=== PATIENT | female | born 1980 | race Native Hawaiian/Other Pacific Islander ===

== ENCOUNTER → 2018-03-31 08:06 | Outpatient (CLI) | payer BC, SELFPAY ==
[2018-03-31 07:59] VITALS: BMI 27.3
--- NOTE | 2018-03-31 08:13 | RAD_ITS ---
STUDY: X-RAY - LUMBAR SPINE REASON FOR EXAM: Female, 38 years old. Fell, right-sided back pain, history of herniated disc L4-5. TECHNIQUE: 3 view(s) of the lumbar spine were obtained. COMPARISON: None FINDINGS: There is straightening of the normal lumbar lordosis. There is no substantial scoliosis. There is a normal alignment of the vertebrae. Mild endplate spurring L5-S1. Minimal facet arthropathy L4-5, 5 and S1. Normal disc space heights. Mild sclerosis of the sacroiliac joints. The soft tissue structures are unremarkable. RAD/Lumbar Spine 2 or 3 Views IMPRESSION: Minimal degenerative changes. There is straightening of the normal lordotic curve, a nonspecific finding, which may be due to positioning or which might be due to muscle spasm. Electronically Signed: Marita Molina MD at 7:28 EST , Service support ,
--- NOTE | 2018-03-31 08:13 | RAD_ITS ---
STUDY: X-RAY - THORACIC SPINE REASON FOR EXAM: Female, 38 years old. Fell right side back pain. TECHNIQUE: 2 view(s) of the thoracic spine were obtained. COMPARISON: None. FINDINGS: Normal kyphosis of the thoracic spine. There is minimal dextroscoliosis. Normal thoracic vertebrae and endplates. Normal disc space heights. The soft tissue structures are unremarkable. RAD/Thoracic Spine 3 Views IMPRESSION: Normal x-ray examination of the thoracic spine. Electronically Signed: Marita Molina MD at 7:27 EST , Service support ,
--- NOTE | 2018-03-31 08:13 | RAD_ITS ---
STUDY: X-RAY - CERVICAL SPINE REASON FOR EXAM: Female, 38 years old. Fell, right-sided neck pain, TECHNIQUE: 4 view(s) of the cervical spine were obtained. COMPARISON: None FINDINGS: Normal anterior atlantoaxial articulation. Normal odontoid process. There is straightening of the normal cervical lordosis. Normal vertebral bodies and endplates. Normal disc space heights. The soft tissue structures are unremarkable. RAD/Cerv Spine 2 or 3 Views IMPRESSION: There is straightening of the normal lordotic curve, a nonspecific finding, which may be due to positioning or which might be due to muscle spasm. Electronically Signed: Marita Molina MD at 7:29 EST , Service support ,
== END ==
PROVIDERS: Family Provider Family Medicine; PCP Family Medicine; Referring Provider Physician Assistant; Visit Provider Physician Assistant
DX: M54.2 Cervicalgia (principal); M54.5 Low back pain; M54.6 Pain in thoracic spine
CPT/HCPCS: 72040; 72072; 72100

== ENCOUNTER 2018-06-15 10:00 | Outpatient (RCR) | payer BC, SELFPAY ==
[2018-03-31 07:59] VITALS: BMI 27.3
--- NOTE | 2018-05-04 10:50 | HP.PTEVAL_ITS ---
Patient's Visit Information OSVALDO SHI is a 38 year old F referred to Physical Therapy by Yee Hines MD with a diagnosis of LBP. Date of Evaluation: 05/04/18 Physical Therapist: Joaquim Holland, JANELLET, OCS, CSCS - Visit Plan Frequency: 2-3x /Week Duration: 4-6 Weeks Plan: 2-3x/week for 4-6 weeks for: Nel based L/S ext and progression of forces/mobs. DLS/body mechanics. ES and MH if needed.(pt trying to get prgnant so keep communication lines open about this) - Subjective Findings: Have had back pain since 2009. [place]oved [place] year ago and has been pretty good. Fell in March walking dog and slipping on hill. Pain is in LB and some into R LE. Had pain in R shoulder making it difficult to dress also but that is better. Pain in LB and R Leg is worse int he morning and gloria d to bend in morning to put on pants. Better last couple of days. Standing talking this morning had sharp pain in LB. Comfortable at rest. Walking too long or sitting for too long will cause pain. Has to be conscious of similar activiites. Has to break home activities down into shorter segments due to pain. Spolits up house duties throughout the weeek. Sleep is OK, but hard time turning in bed and cannot sleep on right side. Not working currently, was in visual merchandising and very physical work. Hobbies include painting in sitting or standing position. - Pain R LB adn leg Pain Intensity (Out of 10): 0 Pain Intensity Range: 0, 8 - Objective LB AROM ext causes pressure in R LB adn mod limited, flexion is slow and painful centrally, L SB gives R sided pain, R SB is oK. Walks well and trasnfers normal today but slow. reflexes 2/3 patella and achilles. Sensation WNL to gross light touch in LE. Strength LE 4/5 without myotomal problems. - slump and SLR test. Repeated eis:B motion. no pain. - Goals Goal 1:: full L/S AROM without pain. Goal Time Frame: 4-6 Weeks Goal 2:: Patient feel 90% better with pain 1/10 at most and only in back. Goal Time Frame: 4-6 Weeks Goal 3:: Pt sleep without interruption Goal Time Frame: 4-6 Weeks Goal 4:: Housework without noticing increasing pain. Goal Time Frame: 4-6 Weeks - Rehabilitation Potential Physical Therapy Diagnosis: LBP likely discal Rehabilitation Potential: Fair - Anticipated Interventions Patient/Client Instruction: Educate patient on: Condition, Plan of Care For the Purpose of:: To decrease pain, To increase ROM, To increase tolerance to activity/condition/position, To improve ability of physical actions for home/community/work/leisure Therapeutic Exercise to Include: Strength training, Passive ROM, Active ROM, Dynamic Lumbar Stabilization, Nel Exercises For the Purpose of:: To decrease pain, To increase ROM, To increase tolerance to activity/condition/position, To improve ability of physical actions for home/community/work/leisure Manual Therapy Techniques to Include: Mobilization Comment: ext For the Purpose of:: To increase ROM TENS: Yes Thermo therapy (hot pack): Yes For the Purpose of:: To decrease pain, To increase tolerance to activity/condition/position, To improve ability of physical actions for home/community/work/leisure Thank you for the opportunity to evaluate your patient. For Medicare and Medicare HMO plans, please review the plan of care and approve it. It will need to be FAXED BACK to us at [phone] for Medicare purposes. For Medicare only, by signing this I certify the plan of care. Please let me know if there are questions or concerns regarding this plan of care. Physician Signature:__ Date:
--- NOTE | 2018-06-15 10:29 | HP.PTDCSUM_ITS ---
HP - PT D/C Summary It has been my pleasure to treat OSVALDO SHI under orders from Yee Hines MD, for the diagnosis of LBP for a total of 9 visit(s). Discharge Date: 06/15/18 Please see the following information for a summary of their discharge status. - Subjective Subjective: No back pain lately. Can't go crazy on a full day yet. Sleep is good. Activities are pretty normal. - Pain R LB adn leg Pain Intensity (Out of 10): 0 - Overall Improvement % Improvement: 90 - Objective Objective/Function: Full L/S AROM without pain, has some contralateral stretch ing with B SB. Walks well and painfree today. Overall doing well and will continue to work hard at home. - Goals Goal 1:: full L/S AROM without pain. Goal Progress: Goal Met Goal 2:: Patient feel 90% better with pain 1/10 at most and only in back. Goal Progress: Goal Met Goal 3:: Pt sleep without interruption Goal Progress: Goal Met Goal 4:: Housework without noticing increasing pain. Goal Progress: Progressing Goal 5:: I approp Home based core strength ex to maintain improvements. Goal Progress: Goal Met - Plan Plan: D/C - D/C Information Discharge Comments: Pt doing well adn will continue via HEP adn let doctor know if pain returns. If there are questions or concerns regarding this patient's physical therapy, please feel free to call me at [phone]. Thank you for the referral of this patient. Sincerely, Joaquim Holland, DPT, OCS, CSCS
--- OUTSIDE RECORDS SUMMARY | 2018-08-05 12:43 | XMS RPT_ITS ---
:1980 Author Organization OHIP Care Team Providers Name Role Phone Yee Hines Attending Unavailable Yee Hines Referring Unavailable Yee Hines Primary Care Unavailable Robb Jackson Attending Unavailable Robb Jackson Attending Unavailable Robb Jackson Referring Unavailable Yee Hines Primary Care Unavailable PROBLEMS PROBLEMS DATE TYPE CONDITION / CODE ATTENDING STATUS SOURCE 04/26/2018 Unknown M54.2 - Robb Jackson Active [facility] Cervicalgia / Community M54.2(ICD-10) Hospital Repository 03/31/2018 Unknown M54.9 - Robb Jackson Active [facility] Dorsalgia, Community unspecified / Hospital M54.9(ICD-10) Repository PROCEDURES PROCEDURES No Procedure Records FoundRESULTS RESULTS INITAL EVALUATION (1) Observed: 05/06/2018 Status: F Source: [place] - PT 6:45 AM [facility] REPOSITORY [facility] Physical [facility] [address] [place] [address] Fax REHABILITATION SERVICES INITIAL EVALUATION MR#: [id number] Acct: [id number] Name: OSVALDO SHI Rep #: [id number] : 1980 38 From: Joaquim Holland DPT, OCS, CSCS Referring DrAugust: Yee Hines MD Status: REG RCR Insurance: [employer] SELF PAY INSURANCE Patient's Visit Information OSVALDO SHI is a 38 year old F referred to Physical Therapy by Yee Hines MD with a diagnosis of LBP. Date of Evaluation: 05/04/18 Physical Therapist: Joaquim Holland, JANELLET, OCS, CSCS - Visit Plan Frequency: 2-3x /Week Duration: 4-6 Weeks Plan: 2-3x/week for 4-6 weeks for: Nel based L/S ext and progression of forces/mobs. DLS/body mechanics. ES and MH if needed.(pt trying to get prgnant so keep communication lines open about this) - Subjective Findings: Have had back pain since 2009. [place]oved [place] and has been pretty good. Fell in March walking dog and slipping on hill. Pain is in LB and some into R LE. Had pain in R shoulder making it difficult to dress also but that is better. Pain in LB and R Leg is worse int he morning and gloria d to bend in morning to put on pants. Better last couple of days. Standing talking this morning had sharp pain in LB. Comfortable at rest. Walking too long or sitting for too long will cause pain. Has to be conscious of similar activiites. Has to break home activities down into shorter segments due to pain. Spolits up house duties throughout the weeek. Sleep is OK, but hard time turning in bed and cannot sleep on right side. Not working currently, was in visual merchandising and very physical work. Hobbies include painting in sitting or standing position. - Pain R LB adn leg Pain Intensity (Out of 10): 0 Pain Intensity Range: 0, 8 - Objective LB AROM ext causes pressure in R LB adn mod limited, flexion is slow and painful centrally, L SB gives R sided pain, R SB is oK. Walks well and trasnfers normal today but slow. reflexes 2/3 patella and achilles. Sensation WNL to gross light touch in LE. Strength LE 4/5 without myotomal problems. - slump and SLR test. Repeated eis:B motion. no pain. - Goals Goal 1:: full L/S AROM without pain. Goal Time Frame: 4-6 Weeks Goal 2:: Patient feel 90% better with pain 1/10 at most and only in back. Goal Time Frame: 4-6 Weeks Goal 3:: Pt sleep without interruption Goal Time Frame: 4-6 Weeks Goal 4:: Housework without noticing increasing pain. Goal Time Frame: 4-6 Weeks - Rehabilitation Potential Physical Therapy Diagnosis: LBP likely discal Rehabilitation Potential: Fair - Anticipated Interventions Patient/Client Instruction: Educate patient on: Condition, Plan of Care For the Purpose of:: To decrease pain, To increase ROM, To increase tolerance to activity/condition/position, To improve ability of physical actions for home/community/work/leisure Therapeutic Exercise to Include: Strength training, Passive ROM, Active ROM, Dynamic Lumbar Stabilization, Nel Exercises For the Purpose of:: To decrease pain, To increase ROM, To increase tolerance to activity/condition/position, To improve ability of physical actions for home/community/work/leisure Manual Therapy Techniques to Include: Mobilization Comment: ext For the Purpose of:: To increase ROM TENS: Yes Thermo therapy (hot pack): Yes For the Purpose of:: To decrease pain, To increase tolerance to activity/condition/position, To improve ability of physical actions for home/community/work/leisure Thank you for the opportunity to evaluate your patient. For Medicare and Medicare HMO plans, please review the plan of care and approve it. It will need to be FAXED BACK to us at [phone] for Medicare purposes. For Medicare only, by signing this I certify the plan of care. Please let me know if there are questions or concerns regarding this plan of care. Physician Signature: Date: <Electronically signed by Joaquim Holland DPT, OCS, CSCS> 05/06/18 0645 CC: Yee Hines MD EBClaudia Signed URGENT CARE VISIT Observed: 03/31/2018 Status: F Source: [facility] REPORT 11:[address] [address] OFFICE VISIT Date of Service: 03/31/18 MR#: [id number] Acct: [id number] Name: OSVALDO SHI Rep #: [id number] : 1980 Provider: Robb OVIEDO Age/Sex: 38/F Location: [facility] Status: Signed Intake Vital Signs03/31/18 Height 5 ft 5 in 03/31/18 Weight: 164 lb 03/31/18 Body Mass Index (BMI) 27.3 03/31/18 Blood Pressure 116/78 Intake Visit Reasons: Back pain Chief Complaint: s/p fall Instrument Adjuster Required: No Accompanied by: other Is patient in pain?: Yes Allergies No Known Allergies Allergy (Unverified 03/31/18 07:59) Medications cyclobenzaprine 10 mg tablet 10 mg PO TID PRN #20 tab 03/31/18 [Rx Confirmed 03/31/18] prednisone 20 mg tablet 20 mg PO DAILY #18 tab 03/31/18 [Rx Confirmed 03/31/18] PFSH Medical History Gluten intolerance (Acute) history of herniated disk L4 L5 (Acute) Social History Smoking Status: Never smoker alcohol intake: never HPI HPI Chief Complaint: s/p fall Details: OSVALDO BETHEA, is a 38 F who presents to the office today for initial evaluation low back pain with right thigh paresthesias as well as right upper extremity paresthesias status post fall on 03/18/18. Patient states while at home tripping falling landing on her left side including left shoulder. Since the date of the injury she has noted progressively worsening 5/10 aching low back pain along with paresthesias to right lateral posterior thigh as well as generalized aching discomfort throughout right upper extremity. She notes no complaints of left shoulder discomfort. She notes her right upper extremity and right thigh symptoms are exacerbated with cervical and waist flexion, alleviated by essentially nothing. She notes no caudal complaints upon questioning. Past medical history is significant for history of L4-5 herniated disc patient so states. She notes no other associated symptoms and no other alleviating or aggravating factors. ROS Const Constitutional: No other (ROS negative x10 other than as noted above) Exam Const General: cooperative, healthy appearing, no acute distress, comfortable Nutritional Appearance: average body habitus Orientation: alert, awake, oriented x3 HENMT Head: atraumatic Neck Neck: normal visual inspection, full ROM, no lymphadenopathy, no meningeal signs, supple Neck mass: No Thyroid: thyroid normal Lymphatic: no lymphadenopathy noted Chest Chest palpation AND inspection: normal inspection of the chest Resp Effort AND Inspection: normal respiratory effort, able to speak in complete sentences, symmetric chest movement, no cough Cardio Rate: regular rate Pulses: radial pulses present GI Inspection: normal to inspection Musc Musculoskeletal: No joint tenderness (With unguarded full active range of motion left shoulder; 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), joint redness or joint warmth Cervical Spine: cervical ROM normal, loss of normal cervical lordosis, cervical spasm and cervical muscular tenderness (R>L); no cervical spinal tenderness Thoracic/Lumbar Spine: thoracic and lumbar spine normal to inspection, no thoracic spinal tenderness, no lumbar spinal tenderness, paraspinal tenderness on the right greater than left, straight leg raise negative bilaterally (Except positive braggart's RLE) Skin General: no rashes or lesions noted Neuro General: alert, awake, oriented x3, gait normal Cognition: normal cognition Speech: speech normal Gait: normal gait Motor: muscle tone normal throughout Sensory Exam: no sensory deficits noted (except R lat. thigh and generalized nonspecific RUE paresthesias to touch) Extrem General: normal to inspection Psych Appearance: grossly normal Mental Status: mental status grossly normal Mood: congruent mood Affect: normal affect Speech and Movement: speech and movement normal Attitude: cooperative Thought Process: normal Thought Content: normal Judgment: judgment good Assessment AND Plan 1. Back pain M54.9 Orders Orders: 2. Cervical strain S16.1XXA Plan Reviewed today's cervical, thoracic, and lumbar spine radiographs with patient and spouse in office today, revealing no acute pathology per my review, pending radiologist interpretation at the time of this dictation. Prednisone and Flexeril as prescribed today. Home range of motion exercises as instructed today. Follow-up with PCP in 5-7 days should symptoms not improve, sooner should symptoms worsen or any other concerns develop. Patient states acknowledging understanding all the above. This note was generated with [employer] dictation software. It may contain incorrect words, spelling, and punctuation that were not noted in checking the note before signing. 3. Cervical radiculopathy M54.12 4. Thoracic myofascial strain S29.019A 5. Lumbar strain S39.012A 6. Lumbar radiculopathy M54.16 Plan Detail Other Orders Orders: Other Medications New: prednisone 3 tablets daily for 3 days, then 2 tablets daily20 mg PO DAILY 18 tabs 0RF for 3 days, then 1 tablet daily for 3 days. Coding Level of Care Code Off vis,new,level 4 Diagnoses Back pain M54.9 Cervical strain S16.1XXA Cervical radiculopathy M54.12 Thoracic myofascial strain S29.019A Lumbar strain S39.012A Lumbar radiculopathy M54.16 Time Spent (min) 40 03/31/18 1121 <Electronically signed by Robb OVIEDO> Date Robb OVIEDO Cosigner Signature: Date (if applicable) CC: THORACIC SPINE 3 Observed: 03/31/2018 Status: F Source: [place] VIEWS 8:13 AM [facility] REPOSITORY [facility] Imaging Services [address] [place] [address] Thoracic Spine 3 Views MR#: [id number] Acct: [id number] Name: OSVALDO SHI Rep #: [id number] : 1980 F 38 From: Marita Molina MD PCP: Yee Hines MD Status: REG CLI Study: Thoracic Spine 3 Views Date of Exam: 03/31/18 Exam# [id number] Ordering Dr: Robb Jackson STUDY: X-RAY - THORACIC SPINE REASON FOR EXAM: Female, 38 years old. Fell right side back pain. TECHNIQUE: 2 view(s) of the thoracic spine were obtained. COMPARISON: None. FINDINGS: Normal kyphosis of the thoracic spine. There is minimal dextroscoliosis. Normal thoracic vertebrae and endplates. Normal disc space heights. The soft tissue structures are unremarkable. RAD/Thoracic Spine 3 Views IMPRESSION: Normal x-ray examination of the thoracic spine. Electronically Signed: Marita Molina MD at 7:27 EST , Service support , CC: Yee Hines MD; Robb OVIEDO Bench Examiner: Signed LUMBAR SPINE 2 OR 3 Observed: 03/31/2018 Status: F Source: [facility] VIEWS 8:13 AM [facility] REPOSITORY [facility] Imaging Services [address] [place] [address] Lumbar Spine 2 or 3 Views MR#: [id number] Acct: [id number] Name: OSVALDO SHI Rep #: [id number] : 1980 F 38 From: Marita Molina MD PCP: Yee Hines MD Status: REG CLI Study: Lumbar Spine 2 or 3 Views Date of Exam: 03/31/18 Exam# [id number] Ordering Dr: Robb Jackson STUDY: X-RAY - LUMBAR SPINE REASON FOR EXAM: Female, 38 years old. Fell, right-sided back pain, history of herniated disc L4-5. TECHNIQUE: 3 view(s) of the lumbar spine were obtained. COMPARISON: None FINDINGS: There is straightening of the normal lumbar lordosis. There is no substantial scoliosis. There is a normal alignment of the vertebrae. Mild endplate spurring L5-S1. Minimal facet arthropathy L4- 5, 5 and S1. Normal disc space heights. Mild sclerosis of the sacroiliac joints. The soft tissue structures are unremarkable. RAD/Lumbar Spine 2 or 3 Views IMPRESSION: Minimal degenerative changes. There is straightening of the normal lordotic curve, a nonspecific finding, which may be due to positioning or which might be due to muscle spasm. Electronically Signed: Marita Molina MD at 7:28 EST , Service support , CC: Yee Hines MD; Robb OVIEDO Bench Examiner: Signed CERV SPINE 2 OR 3 Observed: 03/31/2018 Status: F Source: [place] VIEWS 8:13 AM [facility] REPOSITORY [facility] Imaging Services [address] [place] [address] Cerv Spine 2 or 3 Views MR#: [id number] Acct: [id number] Name: OSVALDO SHI Rep #: [id number] : 1980 F 38 From: Marita Molina MD PCP: Yee Hines MD Status: REG CLI Study: Cerv Spine 2 or 3 Views Date of Exam: 03/31/18 Exam# [id number] Ordering Dr: Robb Jackson STUDY: X-RAY - CERVICAL SPINE REASON FOR EXAM: Female, 38 years old. Fell, right-sided neck pain, TECHNIQUE: 4 view(s) of the cervical spine were obtained. COMPARISON: None FINDINGS: Normal anterior atlantoaxial articulation. Normal odontoid process. There is straightening of the normal cervical lordosis. Normal vertebral bodies and endplates. Normal disc space heights. The soft tissue structures are unremarkable. RAD/Cerv Spine 2 or 3 Views IMPRESSION: There is straightening of the normal lordotic curve, a nonspecific finding, which may be due to positioning or which might be due to muscle spasm. Electronically Signed: Marita Molina MD at 7:29 EST , Service support , CC: Yee Hines MD; Robb OVIEDO Bench Examiner: Signed ALLERGIES ALLERGIES DATE TYPE / CODE NAME / CODE REACTION SEVERITY SOURCE 03/31/2018 Drug No Known Unknown [facility] Allergy/4160 Allergies/F00 Hospital [address]8467(SNOMED [id number](RXNOR Repository CT) M) ENCOUNTERS ENCOUNTERS ADMIT/DISCHARGE ACCOUNT ADMITTING ENCOUNTER LOCATION SOURCE NUMBER CLASS 06/02/2018 [id number] Ambulatory [place] [facility] 3 [facility] ing:PT Repository 03/31/2018 [id number] Ambulatory [facility] [facility] 1 [facility] ing:HPRAD Repository 03/31/2018/ [id number] Ambulatory BMSBuilding:B [place] [address] Repository PAYERS PAYERS ENCOUNTER GUARANTOR PAYER SUBSCRIBER SOURCE 06/02/2018 OSVALDODavid Jin [place] [address] Insurance:ANTHEMPolic EDWARDSDOB: [address] y Number: [id number] Hospital [address]Rpq: 419 [id number] Repository [phone] () Date:[id number] [address] [place] [address] 359[address]CX: 06/02/2018 Secondary NOT GIVENUNK [place] Insurance:SELF PAY [facility] Number: Effective Repository Date:2018-04-27 03/31/2018 [facility] LILLIAN Jin [place] [address] Insurance:ANTHEMPolic EDWARDSDOB: [address] y Number: [id number] Hospital [address]Itb: 419 [id number] Repository [phone] () Date:[id number] [place] [address]DX: 03/31/2018 Secondary NOT GIVENUNK [place] Insurance:SELF PAY [facility] Number: Effective Repository Date:2018-03-31 03/31/2018 [facility] LILLIAN Jin [place] [address] Insurance:ANTHEMPolic EDWARDSDOB: [address] y Number: [id number] Hospital [address]Nak: (216) [id number] Repository [phone] (HP) Date:9213-19-83[address], [place] [address]EH: 03/31/2018 Secondary NOT GIVENUNK [place] Insurance:SELF PAY [facility] Number: Effective Repository Date:2018-03-31
== END 2018-06-15 19:00 | disposition home or self-care (01) ==
LOC: PT 10:00
PROVIDERS: Family Provider Family Medicine; PCP Family Medicine; Referring Provider Family Medicine; Visit Provider Family Medicine
DX: M54.5 Low back pain (principal)
CPT/HCPCS: 97014; 97110; 97162; 97530; G0283

== ENCOUNTER → 2018-07-14 11:56 | Outpatient (CLI) | payer BC, SELFPAY ==
[2018-03-31 07:59] VITALS: BMI 27.3
[2018-07-14 12:29] LABS: Mucous, Urine 0 SEEN /hpf (<or=2+); Red Blood Cells-Urine 0 SEEN /hpf (0-5)
--- NOTE | 2018-07-14 13:13 | US_ITS ---
STUDY: ULTRASOUND OF THE FEMALE PELVIS - COMPLETE REASON FOR EXAM: Female, 38 years old. Right lower quadrant pain. LMP: July 04, 2018 TECHNIQUE: Transabdominal and Transvaginal TECHNICAL QUALITY: Adequate. COMPARISON: None. FINDINGS: The uterus is retroverted and is in a midline position. The uterus measures 8.7 cm x 5.1 cm x 4.2 cm. Normal uterine cervix. The endometrium measures 5.4 mm in thickness, and is hyperechoic. Within the endometrium, there is a 1.4 cm x 0.8 cm x 0.8 cm echogenic nodule. This may represent a polyp. Clinical correlation is recommended. There is no demonstrated endometrial mass. There is a 1.6 cm x 1.4 cm x 1.2 cm fibroid in the body of the uterus. The uterus is of heterogeneous echotexture. I.U.D. - The patient does not have an I.U.D. The right ovary is visualized. The right ovary measures 4.1 cm x 5.1 cm x 4.2 cm. Follicles are seen within the ovary. There is no visualized right adnexal mass or complex lesion. There is normal arterial and normal venous vascularity. The left ovary is visualized. The left ovary measures 3.4 cm x 2 cm x 2.3 cm. Follicles are seen within the ovary. There is no visualized left adnexal mass or complex lesion. There is normal arterial and normal venous vascularity. There is no fluid in the cul-de-sac. The pre void volume of the bladder was 389 ml. Polycystic ovary disease: No. US/Transvaginal Non- IMPRESSION: Heterogeneous echotexture of the uterus suggestive of fibroid change with focal fibroid as described. Findings suggestive a 1.4 cm x 0.8 cm x 0.8 cm uterine endometrial polyp. Electronically Signed: Stewart Tovar, at 12:27 EST , Service support ,
--- NOTE | 2018-07-14 13:13 | US_ITS ---
STUDY: ULTRASOUND OF THE FEMALE PELVIS - COMPLETE REASON FOR EXAM: Female, 38 years old. Right lower quadrant pain. LMP: July 04, 2018 TECHNIQUE: Transabdominal and Transvaginal TECHNICAL QUALITY: Adequate. COMPARISON: None. FINDINGS: The uterus is retroverted and is in a midline position. The uterus measures 8.7 cm x 5.1 cm x 4.2 cm. Normal uterine cervix. The endometrium measures 5.4 mm in thickness, and is hyperechoic. Within the endometrium, there is a 1.4 cm x 0.8 cm x 0.8 cm echogenic nodule. This may represent a polyp. Clinical correlation is recommended. There is no demonstrated endometrial mass. There is a 1.6 cm x 1.4 cm x 1.2 cm fibroid in the body of the uterus. The uterus is of heterogeneous echotexture. I.U.D. - The patient does not have an I.U.D. The right ovary is visualized. The right ovary measures 4.1 cm x 5.1 cm x 4.2 cm. Follicles are seen within the ovary. There is no visualized right adnexal mass or complex lesion. There is normal arterial and normal venous vascularity. The left ovary is visualized. The left ovary measures 3.4 cm x 2 cm x 2.3 cm. Follicles are seen within the ovary. There is no visualized left adnexal mass or complex lesion. There is normal arterial and normal venous vascularity. There is no fluid in the cul-de-sac. The pre void volume of the bladder was 389 ml. Polycystic ovary disease: No. US/Pelvic (Non ) IMPRESSION: Heterogeneous echotexture of the uterus suggestive of fibroid change with focal fibroid as described. Findings suggestive a 1.4 cm x 0.8 cm x 0.8 cm uterine endometrial polyp. Electronically Signed: Stewart Tovar, at 12:27 EST , Service support ,
[2018-07-14 15:51] LABS: Absolute Lymphocyte Count 2.66 X10^3/ul (0.83-4.51); Absolute Neutrophil Count 3.6 X10^3/uL (2.0-7.7); Basophil# 0.06 X10^3/uL; Basophil% 0.9 % (0-1); Eosinophil# 0.21 X10^3/uL; Hematocrit 42.8 % (37-47); Hemoglobin 13.7 g/dl (12.0-15.0); Lymphocyte # 2.66 X10^3/ul (4.0); Lymphocyte % 38.3 % (19-41); Mean Corpuscular Hgb 30.6 pg (27.0-32.0); Mean Corpuscular Volume 95.5 fL (81-99); Mean Platelet Vol. 11.6 fl (6.2-12.0); Monocyte# 0.41 X10^3/uL; Monocyte% 5.9 % (0-10); Neutrophil # 3.59 X10^3/uL (2.7-7.7); Neutrophil % 51.8 % (47-70); POSITIVE COUNT NO; POSITIVE DIFFERENTIAL NO; POSITIVE MORPHOLOGY NO; Platelet Count 271 K/mm3 (150-450); RBC Distribution Width CV 12.6 % (11.6-14.6); RBC Distribution Width SD 42.9 fl (35.1-43.9); Red Blood Count 4.48 M/mm3 (4.2-5.4); White Blood Count 6.9 K/mm3 (4.4-11.0)
[2018-07-14 15:58] LABS: Color, Urine Yellow (Yellow); Glucose, Dipstick Normal (Normal); Ketone-Dipstick Negative (Negative); Leukocyte Esterase-Dipstick 25 /ul (Negative); Nitrite-Dipstick Positive (Negative); Occult Blood-Urine 10 /ul (Negative); Protein-Dipstick 30 mg/dl (Negative); Urine Bilirubin Dipstick Negative (Negative); Urine Clarity Cloudy (Clear); Urine Urobilinogen Normal (Normal); Urine pH 6.5 (5.0 - 8.0)
[2018-07-14 16:16] LABS: Bacteria 4+ /hpf (None Seen); Squamous Epithelial Cells - UA 0-5 SEEN /hpf (5-10); White Blood Cells 0-5 SEEN /hpf (0-5)
== END ==
PROVIDERS: Family Provider Family Medicine; PCP Family Medicine; Referring Provider Family Medicine; Visit Provider Family Medicine
DX: R10.31 Right lower quadrant pain (principal)
CPT/HCPCS: 36415; 76830; 76856; 81001; 85025; 87077; 87086; 87088; 93976

== ENCOUNTER → 2018-07-22 13:14 | Outpatient (CLI) | payer BC, SELFPAY ==
[2018-03-31 07:59] VITALS: BMI 27.3
[2018-07-22 13:17] LABS: Bacteria 0 SEEN /hpf (None Seen); Mucous, Urine 0 SEEN /hpf (<or=2+); Red Blood Cells-Urine 0 SEEN /hpf (0-5); White Blood Cells 0 SEEN /hpf (0-5)
[2018-07-22 15:31] LABS: Color, Urine Yellow (Yellow); Glucose, Dipstick Normal (Normal); Ketone-Dipstick Negative (Negative); Leukocyte Esterase-Dipstick Negative /ul (Negative); Nitrite-Dipstick Negative (Negative); Occult Blood-Urine Negative /ul (Negative); Protein-Dipstick Negative (Negative); Specific Gravity, Urine 1.005 (1.002-1.030); Urine Bilirubin Dipstick Negative (Negative); Urine Clarity Clear (Clear); Urine Urobilinogen Normal (Normal)
[2018-07-22 15:38] LABS: Squamous Epithelial Cells - UA 0-5 SEEN /hpf (5-10)
== END ==
PROVIDERS: Family Provider Family Medicine; PCP Family Medicine; Visit Provider Family Medicine
DX: R10.31 Right lower quadrant pain (principal)
CPT/HCPCS: 81001; 87086

== ENCOUNTER → 2018-08-08 12:33 | Outpatient (CLI) | payer BC, SELFPAY ==
[2018-03-31 07:59] VITALS: BMI 27.3
--- NOTE | 2018-08-08 12:41 | CT_ITS ---
STUDY: CT ABDOMEN AND PELVIS WITHOUT CONTRAST REASON FOR EXAM: Female, 38 years old. Diffuse abdominal pain for months. RADIATION DOSAGE (If Supplied By Facility): CTDIvol = ( 9.50 ) mGy, DLP = ( 449.37 ) mGycm TECHNIQUE: Transaxial images were obtained from the dome of the diaphragm to the symphysis pubis without oral contrast, and without intravenous contrast. Sagittal and coronal images were reconstructed. Individualized dose optimization techniques were used for this CT. COMPARISON: Pelvic ultrasound, July 14, 2018. FINDINGS: The visualized lung bases are unremarkable. The visualized portions of the heart are within normal limits. Normal liver. Normal gallbladder and extrahepatic biliary system. Normal spleen. There is a vague 5 mm hypodensity in the neck of the pancreas, ( image 40, series 1002), which may represent a cyst or small mass. The pancreas is otherwise unremarkable. Normal bilateral adrenal glands. Normal right kidney. Normal left kidney. Normal visualized stomach. Normal small intestine. Large amount of feces throughout the colon without mass or obstruction. The appendix is visualized and appears normal. Normal abdominal aorta. Normal inferior vena cava. Normal retroperitoneum. The uterus is retroverted and prominent. It is heterogenous in density. There are follicles seen in both ovaries. There is no pelvic lymphadenopathy. No free air or free fluid is seen within the peritoneal cavity. Normal abdominal wall. There are diffuse degenerative changes of the visualized lumbar spine. CT/Abdomen/Pelvis without Cont IMPRESSION: 1. Prominent uterus. 2. Increased colonic feces suggesting constipation. 3. Hypodensity in the neck of the pancreas. Mass versus cyst.. MRI is offered. Electronically Signed: Victor Hugo Almanzar DO at 10:55 EDT Tel [phone], Service support ,
== END ==
PROVIDERS: Family Provider Family Medicine; PCP Family Medicine; Referring Provider Family Medicine; Visit Provider Family Medicine
DX: R10.31 Right lower quadrant pain (principal)
CPT/HCPCS: 74176

== ENCOUNTER → 2018-08-16 10:09 | Outpatient (CLI) | payer BC, SELFPAY ==
[2018-03-31 07:59] VITALS: BMI 27.3
--- NOTE | 2018-08-16 10:13 | MRI_ITS ---
STUDY: MRI ABDOMEN WITH AND WITHOUT CONTRAST REASON FOR EXAM: Female, 38 years old. Pancreatic cyst. Pain. TECHNIQUE: Standardized fat and water weighted pulse sequences were obtained in all 3 orthogonal planes post contrast administration. 15 IV Dotarem was administered for the contrast portion of the examination. COMPARISON: CT dated 08/08/2018. FINDINGS: The visualized lung bases are unremarkable. The visualized portions of the heart are within normal limits. Normal liver. Normal gallbladder and extrahepatic biliary system. Normal spleen. There is an 8 x 6 mm T2 hyperintense nonenhancing cystic lesion in the body of the pancreas which corresponds to the findings on the recent CT. 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 There are no additional pancreatic lesions. The pancreatic duct is normal in caliber. Normal bilateral adrenal glands. Normal right kidney. Normal left kidney. Normal visualized stomach. Normal small intestine. Normal colon. The appendix is visualized and appears normal. Normal abdominal aorta. Normal inferior vena cava. Normal retroperitoneum. Normal abdominal wall. Normal osseous structures. MRI/MRI Abd WITH and W/O Contrast IMPRESSION: 8 x 6 mm T2 hyperintense nonenhancing cystic lesion in the body of the pancreas which corresponds to the findings on the recent CT. 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 A follow-up pancreatic protocol MRI in 6-12 months is recommended. Electronically Signed: Robb Orourke, at 16:13 EDT Tel , Service support ,
== END ==
PROVIDERS: Family Provider Family Medicine; PCP Family Medicine; Referring Provider Family Medicine; Visit Provider Family Medicine
DX: R93.5 Abnormal findings on diagnostic imaging of other abdominal regions, including retroperitoneum (principal)
CPT/HCPCS: 74183; A9575

== ENCOUNTER → 2018-11-09 | Outpatient (CLI) | payer BC, SELFPAY ==
[2018-11-09 14:03] VITALS: BMI 27.3
[2018-11-23 13:48] LABS: HPV APTIMA, High Risk Negative (Negative)
== END | disposition home or self-care (01) ==
PROVIDERS: Family Provider Family Medicine; PCP Family Medicine; Referring Provider Obstetrics & Gynecology; Visit Provider Obstetrics & Gynecology
DX: Z12.4 Encounter for screening for malignant neoplasm of cervix (principal)
CPT/HCPCS: 87624; 88175; G0145

== ENCOUNTER → 2018-11-25 | Outpatient (CLI) | payer BC, SELFPAY ==
[2018-11-09 14:03] VITALS: BMI 27.3
[2018-11-25 11:43] LABS: Estradiol 42.5 pg/mL; Follicle Stimulating Hormone 6.8 mIU/mL; Thyroid Stim Hormone (TSH) 1.17 uIU/mL (0.358-3.74)
== END | disposition home or self-care (01) ==
LOC: PAVLAB 11:02
PROVIDERS: Family Provider Family Medicine; PCP Family Medicine; Referring Provider Obstetrics & Gynecology; Visit Provider Obstetrics & Gynecology
DX: N94.6 Dysmenorrhea, unspecified (principal); N97.9 Female infertility, unspecified
CPT/HCPCS: 36415; 82670; 83001; 84443

== ENCOUNTER → 2018-12-23 11:16 | Outpatient (CLI) | payer BC, SELFPAY ==
[2018-12-19 11:43] VITALS: BMI 27.3
[2018-12-23 12:30] LABS: hCG Titer Quant., Serum 1469 mIU/mL (1-3)
== END ==
PROVIDERS: Family Provider Family Medicine; PCP Family Medicine; Referring Provider Obstetrics & Gynecology; Visit Provider Obstetrics & Gynecology
DX: N97.9 Female infertility, unspecified (principal)
CPT/HCPCS: 36415; 84702

== ENCOUNTER → 2018-12-25 06:38 | Outpatient (CLI) | payer BC, SELFPAY ==
[2018-12-19 11:43] VITALS: BMI 27.3
[2018-12-25 08:49] LABS: hCG Titer Quant., Serum 3175 mIU/mL (1-3)
== END ==
PROVIDERS: Family Provider Family Medicine; PCP Family Medicine; Visit Provider Obstetrics & Gynecology
DX: N97.9 Female infertility, unspecified (principal)
CPT/HCPCS: 36415; 84702

== ENCOUNTER → 2019-01-20 07:52 | Outpatient (CLI) | payer BC, SELFPAY ==
[2018-11-09 14:03] VITALS: BMI 27.3
[2018-12-19 11:43] VITALS: BMI 27.3
== END ==
PROVIDERS: Family Provider Family Medicine; PCP Family Medicine; Referring Provider Obstetrics & Gynecology; Visit Provider Obstetrics & Gynecology
DX: Z01.818 Encounter for other preprocedural examination (principal)

== ENCOUNTER → 2019-01-24 | Outpatient (CLI) | payer BC, SELFPAY ==
[2019-01-24 12:45] VITALS: BMI 27.3
[2019-01-24 18:49] LABS: Chlamydia Trachomatis by PCR Negative (Negative); Neisserai gonorrhoeae by PCR Negative (Negative); Probe Check PASS; Sample Adequacy Control PASS; Specimen Processing Control PASS
== END | disposition home or self-care (01) ==
LOC: LABSPEC 16:43
PROVIDERS: Family Provider Family Medicine; PCP Family Medicine; Referring Provider Obstetrics & Gynecology; Visit Provider Obstetrics & Gynecology
DX: O09.90 Supervision of high risk pregnancy, unspecified, unspecified trimester (principal); Z3A.00 Weeks of gestation of pregnancy not specified
CPT/HCPCS: 87086; 87088; 87491; 87591

== ENCOUNTER → 2019-02-02 | Outpatient (CLI) | payer BC, SELFPAY ==
[2019-01-24 12:45] VITALS: BMI 27.3
[2019-02-02 17:10] LABS: Absolute Lymphocyte Count 2.32 X10^3/uL (0.83-4.51); Absolute Neutrophil Count 6.8 X10^3/uL (2.0-7.7); Basophil# 0.03 X10^3/uL; Basophil% 0.3 % (0-1); Eosinophil# 0.15 X10^3/uL; Eosinophils% 1.5 % (0-5); Hematocrit 37.7 % (37-47); Hemoglobin 12.9 g/dL (12.0-15.0); Lymphocyte # 2.32 X10^3/ul (4.0); Lymphocyte % 22.9 % (19-41); Mean Corp Hgb Conc 34.2 g/dL (32-36); Mean Corpuscular Hgb 31.4 pg (27.0-32.0); Mean Corpuscular Volume 91.7 fL (81-99); Mean Platelet Vol. 11.4 fl (6.2-12.0); Monocyte# 0.79 X10^3/uL; Monocyte% 7.8 % (0-10); NRBC Flagged by Analyzer 0 % (0-5); Neutrophil # 6.81 X10^3/uL (2.7-7.7); Neutrophil % 67.1 % (47-70); Platelet Count 232 K/mm3 (150-450); RBC Distribution Width SD 43.8 fl (35.1-43.9); Red Blood Count 4.11 M/mm3 (4.2-5.4); White Blood Count 10.1 K/mm3 (4.4-11.0)
[2019-02-02 18:30] LABS: HIV - WCH Non-Reactive (Nonreactive); Rubella IgG > 500.0 IU/mL
[2019-02-03 02:39] LABS: Rapid Plasmin Reagin (RPR) NONREACTIVE (NONREACTIVE)
== END | disposition home or self-care (01) ==
PROVIDERS: Obstetrics & Gynecology; Family Provider Family Medicine; PCP Family Medicine; Referring Provider Nurse Practitioner Women's Health; Visit Provider Nurse Practitioner Women's Health
DX: O09.511 Supervision of elderly primigravida, first trimester (principal); Z3A.00 Weeks of gestation of pregnancy not specified
CPT/HCPCS: 36415; 85025; 86592; 86703; 86762; 86850; 86900; 86901

== ENCOUNTER → 2019-03-22 | Outpatient (CLI) | payer BC, SELFPAY ==
[2019-03-22 08:36] VITALS: BMI 29.2
== END | disposition home or self-care (01) ==
PROVIDERS: Family Provider Family Medicine; PCP Family Medicine; Referring Provider Obstetrics & Gynecology; Visit Provider Obstetrics & Gynecology
DX: Z36.9 Encounter for antenatal screening, unspecified (principal)
CPT/HCPCS: 36415

== ENCOUNTER → 2019-06-08 10:21 | Outpatient (CLI) | payer BC, SELFPAY ==
[2019-06-08 10:00] VITALS: BMI 29.2
[2019-06-08 11:23] LABS: Absolute Lymphocyte Count 1.42 X10^3/uL (0.83-4.51); Absolute Neutrophil Count 5.5 X10^3/uL (2.0-7.7); Basophil# 0.02 X10^3/uL; Basophil% 0.3 % (0-1); Eosinophils% 1.3 % (0-5); Hematocrit 33.6 % (37-47); Lymphocyte # 1.42 X10^3/ul (4.0); Lymphocyte % 18.5 % (19-41); Mean Corp Hgb Conc 32.7 g/dL (32-36); Mean Corpuscular Hgb 30.4 pg (27.0-32.0); Mean Corpuscular Volume 92.8 fL (81-99); Mean Platelet Vol. 11.8 fl (6.2-12.0); Monocyte# 0.62 X10^3/uL; Monocyte% 8.1 % (0-10); NRBC Flagged by Analyzer 0 % (0-5); Neutrophil # 5.48 X10^3/uL (2.7-7.7); Neutrophil % 71.1 % (47-70); Platelet Count 176 K/mm3 (150-450); RBC Distribution Width CV 12.5 % (11.6-14.6); RBC Distribution Width SD 42.9 fl (35.1-43.9); Red Blood Count 3.62 M/mm3 (4.2-5.4); White Blood Count 7.7 K/mm3 (4.4-11.0)
[2019-06-08 12:05] LABS: Glucose Challenge Gest 1H 50g 140 mg/dL (70-140)
[2019-06-08 12:30] LABS: Hepatitis B Surface Antigen Non-Reactive (Nonreactive)
== END ==
PROVIDERS: Nurse Practitioner Women's Health; PCP Family Medicine; Referring Provider Obstetrics & Gynecology; Visit Provider Obstetrics & Gynecology
DX: O09.90 Supervision of high risk pregnancy, unspecified, unspecified trimester (principal); Z3A.00 Weeks of gestation of pregnancy not specified
CPT/HCPCS: 36415; 82950; 85025; 87340

== ENCOUNTER → 2019-06-14 09:36 | Outpatient (CLI) | payer BC, SELFPAY ==
[2019-06-08 10:00] VITALS: BMI 29.2
[2019-06-14 10:46] LABS: Glucose GTT-Gestation. Fasting 86 mg/dL (<105)
[2019-06-14 11:32] LABS: Glucose GTT-Gestational 1 Hr 128 mg/dL (<190)
[2019-06-14 12:36] LABS: Glucose GTT-Gestational 2 Hr 137 mg/dL (<165)
[2019-06-14 14:46] LABS: Glucose GTT-Gestational 3 Hr 67 L (<145)
== END ==
PROVIDERS: PCP Family Medicine; Referring Provider Obstetrics & Gynecology; Visit Provider Obstetrics & Gynecology
DX: O99.810 Abnormal glucose complicating pregnancy (principal); Z3A.00 Weeks of gestation of pregnancy not specified
CPT/HCPCS: 36415; 82951; 82952

== ENCOUNTER → 2019-08-03 | Outpatient (CLI) | payer BC, SELFPAY ==
[2019-08-03 09:01] VITALS: BMI 29.2
== END | disposition home or self-care (01) ==
LOC: LABSPEC 15:52
PROVIDERS: PCP Family Medicine; Referring Provider Nurse Practitioner Women's Health; Visit Provider Nurse Practitioner Women's Health
DX: Z34.93 Encounter for supervision of normal pregnancy, unspecified, third trimester (principal); Z3A.36 36 weeks gestation of pregnancy
CPT/HCPCS: 87081

== ENCOUNTER → 2019-08-11 | Outpatient (CLI) | payer BC, SELFPAY ==
[2019-08-11 08:48] VITALS: BMI 29.2
[2019-08-11 10:01] LABS: Protein, Urine (Random) 65.1 mg/dL (<11.9); Protein:Creat Ratio 440 mg/g CRE (0-200)
== END | disposition home or self-care (01) ==
LOC: LABSPEC 09:39
PROVIDERS: PCP Family Medicine; Visit Provider Obstetrics & Gynecology
DX: O12.10 Gestational proteinuria, unspecified trimester (principal); Z3A.00 Weeks of gestation of pregnancy not specified
CPT/HCPCS: 82570; 84156

== ENCOUNTER → 2019-08-16 | Outpatient (CLI) | payer BC, SELFPAY ==
[2019-08-11 08:48] VITALS: BMI 29.2
--- NOTE | 2019-08-16 07:42 | US_ITS ---
STUDY: SECOND AND THIRD TRIMESTER OBSTETRICAL ULTRASOUND REASON FOR EXAM: Female, 39 years old proteinuria LMP: November 23, 2018. TECHNIQUE: Transabdominal TECHNICAL QUALITY: Adequate. PRIOR ULTRASOUND: None. FINDINGS: There is a single intrauterine fetus. The fetus is in a cephalic presentation. There is demonstrated cardiac activity with a heart rate of 143 bpm. There is a normal amniotic fluid volume. The largest amniotic fluid pocket measures 3.0 cm. The amniotic fluid index (DAT) is 6.8 cm. The placenta is fundal in location. There are Grade 2 placental changes. The cervix was not measured due to the head positioning. The adnexal regions are not visualized. BIOMETRY: BPD: 9.7 cm: 39 weeks, 4 days HC: 35.4 cm: 41 weeks, 2 days AC: 35.1 cm: 38 weeks, 6 days FL: 7.5 cm: 38 weeks, 1 days CI: 81% FL/BPD: 77% FL/HC: FL/AC: 21% HC/AC: 1.01 age by current US: 39 weeks, 3 days. RUPA by current US: August 20, 2019. Estimated weight: 3709 grams, +/- 549 grams, 84 %. Age by LMP: 38 weeks, 0 days. RUPA by LMP: August 30, 2019. US/OB Limited With Biometrics IMPRESSION: Single live intrauterine gestation with a mean gestational age of 39 weeks and 3 days. Electronically Signed: Stewart Tovar, at 9:35 EDT , Service support ,
== END | disposition home or self-care (01) ==
LOC: OPUS 07:42
PROVIDERS: PCP Family Medicine; Referring Provider Obstetrics & Gynecology; Visit Provider Obstetrics & Gynecology
DX: O12.10 Gestational proteinuria, unspecified trimester (principal); Z3A.00 Weeks of gestation of pregnancy not specified
CPT/HCPCS: 76816

== ENCOUNTER 2019-08-23 18:41 | Inpatient (IN) | payer BC, SELFPAY ==
[2019-08-11 08:48] VITALS: BMI 29.2
[2019-08-18 09:36] VITALS: BMI 29.2
[2019-08-23 19:26] VITALS: BP 134/76; PULSE 90
[2019-08-23 19:27] VITALS: BMI 30.6
[2019-08-23 19:28] VITALS: PULSE 96; TEMP 37.7; O2SAT 99
[2019-08-23 20:11] LABS: Absolute Lymphocyte Count 1.84 X10^3/uL (0.83-4.51); Absolute Neutrophil Count 4.6 X10^3/uL (2.0-7.7); Basophil# 0.02 X10^3/uL; Basophil% 0.3 % (0-1); Eosinophil# 0.03 X10^3/uL; Eosinophils% 0.4 % (0-5); Hematocrit 36.4 % (37-47); Hemoglobin 11.7 g/dL (12.0-15.0); Lymphocyte # 1.84 X10^3/ul (4.0); Mean Corp Hgb Conc 32.1 g/dL (32-36); Mean Corpuscular Hgb 28.8 pg (27.0-32.0); Mean Corpuscular Volume 89.7 fL (81-99); Mean Platelet Vol. 12.6 fl (6.2-12.0); Monocyte# 0.56 X10^3/uL; Monocyte% 7.9 % (0-10); NRBC Flagged by Analyzer 0 % (0-5); Platelet Count 188 K/mm3 (150-450); RBC Distribution Width CV 13.9 % (11.6-14.6); RBC Distribution Width SD 45.3 fl (35.1-43.9); Red Blood Count 4.06 M/mm3 (4.2-5.4); White Blood Count 7.1 K/mm3 (4.4-11.0)
[2019-08-23] MEDS: miSOPROStol 25 MCG TABLET VAGINAL (20:14)
[2019-08-23 22:10] VITALS: BP 119/90; PULSE 74; TEMP 37
[2019-08-23 22:11] VITALS: PULSE 76; O2SAT 99
[2019-08-24] VITALS (54 sets, daily range): BP systolic 92–155; BP diastolic 50–85; PULSE 62–102; RESP 18; TEMP 36.6–37.9; O2SAT 93–100
[2019-08-24] MEDS: 0.9% Normal Saline Single 100 ML IV.SOLN. IY (00:17)
--- NOTE | 2019-08-24 00:23 | HP.PCM_ITS ---
- Problem List (1) AMA (advanced maternal age) primigravida 35+ Status: Acute Qualifiers: Comment: genetic counseling provided and low risk NIPT, 36 week growth us. (2) Abnormal glucose affecting Status: Acute Comment: 3 hr. gtt normal (3) Influenza vaccine administered Status: Acute Comment: vaccine given on 02/23/19 (4) Status: Acute Qualifiers: Comment: discussed carrier and NTD, genetic low risk, AFP negative, anatomy normal (5) Proteinuria affecting Status: Acute Comment: weekly nst, BP cuff testing BID, growth scan ordered. (6) Supervision of high risk , antepartum Status: Acute Comment: PRR RUPA 08/30/19 girl Stefanie Spouse Dick (7) Uterine fibroid during , antepartum Status: Acute Comment: growth scans after 32 weeks- 08/02 Normal growth, 08/15 - borderline jaden History and Physical Date of Admission: 08/24/19 Intake Vital Signs 08/18/19 BMI 29.2 08/18/19 Height 5 ft 6 in 08/18/19 Weight: 191 lb 08/18/19 BMI 30.8 08/18/19 BP 130/60 H Intake Visit Reasons: 38NST/OB weeks Charge Histotechnologist Required: No Is patient in pain?: No Allergies gluten Allergy (Verified 08/18/19 09:36) Other Medications vitamin#30 30 mg iron-10 mg iron-folic acid 1 mg-omg3 capsule cap PO cap 02/23/19 [History Confirmed 08/18/19] blood pressure test kit-wrist See Rx Instructions .ROUTE .MEDSUPPLY #1 ea 08/11/19 [Rx Confirmed 08/18/19] Last Menstral Period: 11/23/18 Zika: Zika virus screening: Negative : No PFSH PFSH Medical History Gluten intolerance (Acute) history of herniated disk L4 L5 (Acute) Family History Grandmother Diabetes Grandfather Diabetes Unknown Lung disease Social History (Updated 08/18/19 @ 11:[address] Salome Gordon MD) household members: spouse current occupational status: employed, unemployed history of recent travel: No sexually active: Yes Smoking Status: Never smoker alcohol intake: never substance use type: does not use caffeine: Yes what type of physical activity do you participate in: walking seatbelt use: always do you feel safe at home: Yes additional social history: Miguel- works at [employer] Patient is unemployed, moved to the from the [facility] Pregancy History 1 Elective abortions Hx Para Spontaneous abortions Hx # Term Pregnancies Ectopic pregnancies Hx # Pregnancies Multiple births # of living children HPI 38NST/OB weeks: Details: OSVALDO SHI is a 39 year old at 39 weeks who presents for induction of labor secondary to advanced maternal age. OB Visit RUPA Calculator Estimated Delivery Date Method Current WG Current Estimate 08/30/19 LMP (Certain) 38w 2d Expected Delivery Route/Plan Labor Preferences- labor support person: Mango pain management options preferred: minimal interventnion to start, open to epidural cut cord/dad catch: yes : yes PP control planned: discussed possible routes of delivery and associated risks: [] special requests: [] Specific Issue/Plans flu vaccine: given tdap vaccine: given rhogam: na LARC form signed: yes movement and labor precautions reviewed. Problem list reviewed and updated with the most current plan of care details and appropriate orders placed. Relevant counseling for the gestational age provided. Continue routine care and follow up unless otherwise noted in visit notes/problem list details Initial Weight: 171 lb Date EGA Weight BP Urine Prot Glucose FHR FuHt Pres Dilation Effaced St Visit Note 02/23/19 13w 1d 176 lb (+5 lb) 122/70 Negative Negative 140 no vb cramping 03/22/19 17w 0d 181 lb 4 oz (+10 lb 4 oz) 124/62 Negative Negative 145 afp today no vb crmaping 04/20/19 21w 1d 179 lb 6 oz (+8 lb 6 oz) 106/67 Trace Negative 152 Some FM. No Vb. LOF. 05/18/19 25w 1d 183 lb 6 oz (+12 lb 6 oz) 120/76 Negative Negative 155 25 Good Fm. No Vb, LOF. Episode of dizziness yesterday. Relieved with rest. Enc to increase fluids, slow to stand etc. 06/08/19 28w 1d 185 lb 6 oz (+14 lb 6 oz) 120/70 Negative Negative 141 28 MH-good FM. NO VB, LOF. 28 wk labs, hep B, tdap. MFM growth US ordered 32 wk 06/23/19 30w 2d 190 lb (+19 lb) 110/64 Negative Negative 135 30 SM- no vb lof good fm no regular ctx 07/06/19 32w 1d 185 lb (+14 lb) 120/78 Negative Negative 131 32 MH-Good FM, no VB, LOF. Will have growth MFM US today. 07/21/19 34w 2d 190 lb 6 oz (+19 lb 6 oz) 115/74 Negative Negative 140 34 Cephalic SM- no vb lof good fm no regular ct 08/03/19 36w 1d 188 lb (+17 lb) 132/80 Negative Negative 139 36 Cephalic 0 -4 MH-No Vb, LOF. Good Fm. Growth US to day. GBS done 08/11/19 37w 2d 189 lb (+18 lb) 112/74 1+ Negative 135 37 Cephalic 0 SM- no vb lof fm no regular ctx 08/18/19 38w 2d 191 lb (+20 lb) 130/60 Negative Negative 130 38 Cephalic 0 SM-m no vb lof good fm no regular ctx Notes Visit Date: 08/18/19 ??No visit notes to display Visit Date: 08/11/19 ??No visit notes to display Visit Date: 08/03/19 ??No visit notes to display Visit Date: 07/21/19 ??No visit notes to display Visit Date: 07/06/19 ??No visit notes to display Visit Date: 06/23/19 ??No visit notes to display Visit Date: 06/08/19 ??No visit notes to display Visit Date: 05/18/19 ??No visit notes to display Visit Date: 04/20/19 ??Some FM. No Vb. LOF. ??JEWEL Pringle on 04/20/19 Visit Date: 03/22/19 ??afp today no vb crmaping ??Salome Gordon MD on 03/22/19 Visit Date: 02/23/19 ??no vb cramping ??Salome Gordon MD on 02/23/19 [facility] First Trimester First Trimester: Desire for , Alcohol, Tobacco Cessation, Illicit/Recreational Drug/Substance Use, Intimate Partner Violence, Barriers to care, Unstable Housing, Communication Barriers, Environmental/Work Hazards, Anticipated Course of Care, Toxoplasmosis Precations, Use of Any medications, Sexual activity, Exercise, Dental Care, Sauna/Hot tub use, Seat Belt use, Childbirth classes/Hospital facilities, , Travel, Indications for US and Screening for Aneuploidy Second Trimester Second Trimester: Signs and Symptoms of Labor, Selecting a care provider, Reproductive Life Planning, Care Planning, Depression/Anxiety and Intimate Partner Violence; discussed Tobacco Cessation Third Trimester Third Trimester: Pain Management Plans, Labor support person(s), Immediate Larc, Movement Monitoring and Feeding Yes ; discussed Trial of Labor after Counseling or discussed Circumcision preference Diagnostics Diagnostics Diagnostics Gest Glucose Tolerance MG/DL 06/14/19 Glucose 1 Hr 50 gm 140 mg/dL (70-140) 06/08/19 Hgb 11.0 g/dL (12.0-15.0) L 06/08/19 Hct 33.6 % (37-47) L 06/08/19 Details: HIV: Urine Culture: Sequential Screen: NIPT Screen: ROS Const Reports system reviewed and no additional complaints, except as docu Card Reports system reviewed and no additional complaints, except as docu Resp Reports system reviewed and no additional complaints, except as docu GI Reports system reviewed and no additional complaints, except as docu, Reports nausea Reports system reviewed and no additional complaints, except as docu Musc Reports system reviewed and no additional complaints, except as docu Exam Const General: cooperative, healthy appearing, comfortable, anxious HENMT Head: normal to inspection Nose: external nose normal Face and sinus: normal facial exam Neck Neck: normal visual inspection, full ROM, no lymphadenopathy Thyroid: thyroid normal Chest Chest palpation & inspection: normal inspection of the chest Resp Effort & Inspection: normal respiratory effort GI Inspection: normal to inspection Palpation: soft, other (gravid uterus) Other: infant vertex and appropriate size for gestational age Other: Cervical Exam: Extrem General: pedal edema Results POC Urinalysis 2 Dip (Clinic) Office Urine Glucose Negative Last Edit by Cherri Eduardo on 08/18/19 09:38 Office Urine Protein Negative Last Edit by Cherri Eduardo on 08/18/19 09:38 Assessment & Plan Problems 1. Proteinuria affecting O12.10 2. Abnormal glucose affecting O99.810 3. Influenza vaccine administered Z23 4. Uterine fibroid during , antepartum O34.10; D25.9 5. Supervision of high risk , antepartum O09.90 6. Primigravida of advanced maternal age in first trimester O09.511 7. 38 weeks gestation of Z3A.38 Patient presents IOL, plan management for , pitocin/AROM when able. Begin with Cytotec and Bateman bulb.. Pain management: [plans epidural]. GBS [negative]. Management of any complications: Advanced maternal age and fibroids I have reviewed the [facility] and made any clinically relevant updates. Orders Orders: POC Urinalysis 2 Dip (Clinic) Today D25.9, O09.90, O12.10, O34.10 OB NST Today D25.9, O09.90, O12.10, O34.10 Coding Level of Care Code OB Routine Diagnoses Proteinuria affecting O12.10 Abnormal glucose affecting O99.810 Influenza vaccine administered Z23 Uterine fibroid during , antepartum O34.10; D25.9 Supervision of high risk , antepartum O09.90 Primigravida of advanced maternal age in first trimester O09.511 ??Trimester: first trimester 38 weeks gestation of Z3A.38 ??Weeks of gestation: 38 weeks
[2019-08-24] MEDS: 0.9% Saline Lock 10 ML Syringe IV ×2 (00:29→00:36)
[2019-08-24] MEDS: Ondansetron 4 MG/2 ML Vial IV (00:30)
[2019-08-24] MEDS: fentaNYL 100 MCG/2 ML Ampul IV (00:34)
[2019-08-24] MEDS: Lactated Ringers 1,000 ML 50 ML IV (00:42)
[2019-08-24] MEDS: Oxytocin 30 units/NS 500 ml 30 UNITS/500 ML IV.SOLN IV (01:40)
[2019-08-24] MEDS: Lactated Ringers 500 ML 999 ML IV ×2 (04:31→06:08)
[2019-08-24] MEDS: fentaNYL-bupivacaine (epidural) 100 ML BAG EPIDURAL ×2 (05:54→10:08)
[2019-08-24] MEDS: Lactated Ringers 1,000 ML 200 ML IV (09:25)
[2019-08-24] MEDS: Oxytocin 30 units/NS 500 ml 30 UNITS/500 ML IV.SOLN 334 UNITS IV (14:47)
--- NOTE | 2019-08-24 15:00 | OP.PCM_ITS ---
Problem List (1) AMA (advanced maternal age) primigravida 35+ Status: Acute Qualifiers: Comment: genetic counseling provided and low risk NIPT, 36 week growth us. (2) Abnormal glucose affecting Status: Acute Comment: 3 hr. gtt normal (3) Influenza vaccine administered Status: Acute Comment: vaccine given on 02/23/19 (4) Status: Acute Qualifiers: Comment: discussed carrier and NTD, genetic low risk, AFP negative, anatomy normal (5) Proteinuria affecting Status: Acute Comment: weekly nst, BP cuff testing BID, growth scan ordered. (6) Supervision of high risk , antepartum Status: Acute Comment: PRR RUPA 08/30/19 girl Stefanie Spouse Dick (7) Uterine fibroid during , antepartum Status: Acute Comment: growth scans after 32 weeks- 08/02 Normal growth, 08/15 - borderline jaden Vaginal Delivery Maternal Presentation: Medically Indicated Induction iol ama Method of Induction: Pitocin, Bateman Bulb, Cytotec Amniotic Membrane Rupture Type: Artificial Amniotic Fluid Description: Clear Final RUPA: 08/30/19 Gestational age: 39 Weeks and 1 Days Date of Procedure: 08/24/19 Surgery/ Procedure Performed: Spontaneous Vaginal Delivery Type of Anesthesia: Epidural Description of Procedure: Patient began pushing and delivered the head in the [ERON] presentation. The head was delivered atraumatically. The anterior and posterior shoulders delivered without complication followed by the rest of the infant and the infant was placed on the maternal abdomen. Delayed cord clamping was employed for approximately 60 seconds. Cord was clamped and cut and gentle traction was applied to the cord and the placenta delivered spontaneously immediately following it was noted to be intact with three-vessel cord. The perineum and vagina were inspected and to have a small second-degree perineal laceration that was repaired in the usual fashion with 3-0 Vicryl Rapide. EBL was 400 cc. Patient and infant tolerated delivery well. Presentation: ERON Placental Delivery Description: Spontaneous Placenta Disposition: [facility] Cord Vessel Description: 3 Vessels Cord Entanglement: None Estimated Blood Loss: 400 A gender: Female Episiotomy Description: None Laceration: Perineal Extension/lac, 2nd degree Medications given after delivery: IV Pitocin Complications: None Multi Select Codes - Urinary/Genital Urinary/Genital CPT Codes: 29246 Vaginal Delivery [facility]
[2019-08-24] MEDS: Naproxen 250 MG Tablet 500 MG PO (17:32)
[2019-08-25] VITALS: BP 119/71; PULSE 70; RESP 19; TEMP 36.9
[2019-08-25] MEDS: Acetaminophen 500 MG Tablet 1000 MG PO ×3 (00:17→22:23)
[2019-08-25 04:00] VITALS: BP 99/52; PULSE 70; RESP 18; TEMP 36.9
[2019-08-25] MEDS: Naproxen 250 MG Tablet 500 MG PO ×2 (04:34→16:06)
--- NOTE | 2019-08-25 07:54 | PCM.PN.OB ---
Subjective: Doing well, no complaints.Pain controlled. Denies CP, SOB, N,V. Ambulating well, tolerating po. Lochia moderate, going well. Did have episode of urinary incontinence last pm. States just recently voided without difficulty. - Physical Exam Vitals/I&O's: Vital Signs Temp Pulse Resp BP Pulse Ox 98.5 F 70 18 99/52 L 100 08/25/19 04:00 08/25/19 04:00 08/25/19 04:00 08/25/19 04:00 08/24/19 17:00 Weight: 189 lb 12.8 oz Body Mass Index (BMI) 30.6 Intake and Output for Last 24 Hours 08/23/19 08/24/19 08/25/19 23:59 23:59 23:59 Intake Total 500 / 500 4993.34 / 4993.34 Output Total 600 / 600 4450 / 4450 Balance -100 / -100 543.34 / 543.34 General: Alert, Oriented x3 Abdomen: Soft, Non-Distended, - - FF at U. Slightly to right. Current Medications Acetaminophen (Tylenol) 1,000 mg PO Q8H PRN PRN PRN Reason: Pain Score 1-3/10 Last Admin: 08/25/19 00:17 Dose: 1,000 mg Documented by: Bisacodyl (Dulcolax) 10 mg RECTAL UD PRN PRN Reason: If no BM Dibucaine (Dibucaine) 1 applic TOPICAL TID PRN PRN; Protocol PRN Reason: Discomfort Hydrocortisone (Hytone) 1 applic TOPICAL TID PRN PRN; Protocol PRN Reason: Discomfort Methylergonovine Maleate (Methergine) 0.2 mg IM X1 PRN PRN Reason: Excess bleeding/uterine atony Naproxen (Naprosyn) 500 mg PO Q8H PRN PRN PRN Reason: Pain Score 1-3/10 Last Admin: 08/25/19 04:34 Dose: 500 mg Documented by: Ondansetron HCl (Zofran) 4 mg IV Q4H PRN PRN PRN Reason: Nausea Oxycodone HCl (Oxyir) 5 - 10 mg PO Q4H PRN PRN PRN Reason: Pain Score 4-10/10 Senna/Docusate Sodium (Senokot-S, Paula-Colace) 1 - 2 tablet PO DAILY PRN PRN PRN Reason: Constipation Simethicone (Mylicon) 80 mg PO PCHS PRN PRN Reason: Indigestion/Stomach pain Sodium Chloride () 5 - 15 ml IV UD PRN PRN Reason: SALINE FLUSH Medical Necessity - Tobacco Use Smoking Status: Never smoker Assessment/Plan All Active Problems (Last Reviewed 08/18/19 @ 09:36 by Cherri Eduardo) Proteinuria affecting (Acute) Abnormal glucose affecting (Acute) Influenza vaccine administered (Acute) Uterine fibroid during , antepartum (Acute) Supervision of high risk , antepartum (Acute) AMA (advanced maternal age) primigravida 35+ (Acute) (Acute) Cervical radiculopathy (Resolved) Cervical strain (Resolved) Dysmenorrhea (Resolved) Female infertility (Resolved) Lumbar radiculopathy (Resolved) Lumbar strain (Resolved) Thoracic myofascial strain (Resolved) s/p PPD # 1 1. routine post delivery care 2. breast feeding- support given 3. rh positive 4. rubella immune 5. encourage stool softener 6. Plan home this pm if voiding adequately.
--- NOTE | 2019-08-25 08:00 | DCINST_ITS ---
Additional Instructions: If you experience any of the following, contact your healthcare provider. * Bleeding that soaks a pad every hour for 2 hours * Fever 100.4 or higher * Unrelieved incision or abdominal pain * Swelling, redness, discharge or bleeding from your incision or episiotomy site * Your incision begins to separate * Problems urinating (including inability to urinate or burning while urinating). * Visual changes * Severe headache * Flu-like symptoms * Pain or redness in one of both of your breasts * Pain, warmth, tenderness or swelling in your legs, especially the calf area * Frequent nausea and vomiting * Symptoms of depression or anxiety If you experience any of the following, call 911 or go to the nearest Emergency Room. * Chest pain * Problems breathing * Seizure activity * Partial or complete paralysis of a body part, slurred speech, weakness or drooping of the face, or a sudden inability to walk or hold your balance Allergies/Adverse Reactions: Allergies gluten Allergy (Verified 08/18/19 09:36) Other Medications to take at Discharge Vits [Prenatabs FA] 1 tab PO DAILY 08/23/19 Primary Care Physician: Yee Hines MD [Primary Care Provider] - Test Results: Test results from this visit will be discussed in further detail at your follow- up appointment, if applicable.
--- NOTE | 2019-08-25 08:00 | PCM.DCVAG ---
Additional Instructions: If you experience any of the following, contact your healthcare provider. Bleeding that soaks a pad every hour for 2 hours Fever 100.4 or higher Unrelieved incision or abdominal pain Swelling, redness, discharge or bleeding from your incision or episiotomy site Your incision begins to separate Problems urinating (including inability to urinate or burning while urinating). Visual changes Severe headache Flu-like symptoms Pain or redness in one of both of your breasts Pain, warmth, tenderness or swelling in your legs, especially the calf area Frequent nausea and vomiting Symptoms of depression or anxiety If you experience any of the following, call 911 or go to the nearest Emergency Room. Chest pain Problems breathing Seizure activity Partial or complete paralysis of a body part, slurred speech, weakness or drooping of the face, or a sudden inability to walk or hold your balance Allergies/Adverse Reactions: Allergies gluten Allergy (Verified 08/18/19 09:36) Other Medications to take at Discharge Vits [Prenatabs FA] 1 tab PO DAILY 08/23/19 Primary Care Physician: Yee Hines MD [Primary Care Provider] - Test Results: Test results from this visit will be discussed in further detail at your follow-up appointment, if applicable.
[2019-08-25 08:20] VITALS: BP 103/46; PULSE 65; RESP 20; TEMP 36.9
[2019-08-25] MEDS: Dibucaine 30 GM Tube 1 APPLIC TOPICAL (10:19)
[2019-08-25 12:58] VITALS: BP 124/49; PULSE 74; RESP 15; TEMP 37.2
[2019-08-25 16:10] VITALS: BP 108/55; PULSE 72; TEMP 36.9
[2019-08-25 21:30] VITALS: BP 135/66; PULSE 80; RESP 16; TEMP 36.4
== END 2019-08-25 22:45 | disposition home or self-care (01) | DRG 807 ==
PROVIDERS: Admitting Provider Obstetrics & Gynecology; PCP Family Medicine; Referring Provider Obstetrics & Gynecology; Visit Provider Obstetrics & Gynecology
DX: O70.1 Second degree perineal laceration during delivery (principal); Z37.0 Single live birth; Z3A.39 39 weeks gestation of pregnancy
CPT/HCPCS: 59025; 59050; 85025; 86850; 86900; 86901; 99218; J7120; A4216; G0378; J2405

== ENCOUNTER 2019-08-27 08:38 | Emergency (ER) | payer BC, SELFPAY ==
[2019-08-27 08:38] VITALS: BP 139/87; PULSE 85; RESP 16; TEMP 36.3; O2SAT 98; BMI 30.8
--- NOTE | 2019-08-27 09:02 | US_ITS ---
STUDY: ULTRASOUND OF THE FEMALE PELVIS - COMPLETE REASON FOR EXAM: Female, 39 years old. POST AUGUST 23 BLEEDING DECREASING UNTIL THIS AM VERY HEAVY LMP: Unknown. TECHNIQUE: Transabdominal TECHNICAL QUALITY: Adequate. COMPARISON: August 16, 2019 FINDINGS: The uterus is anteverted and is in a midline position. The uterus measures 20.1 x 13.9 x 9.0 cm. Normal uterine cervix. The endometrium measures 34 mm in thickness, and is heterogeneous. There is no demonstrated endometrial mass. There are hypoechoic masses of the uterus consistent with fibroids including measuring 3.6 cm. I.U.D. - The patient does not have an I.U.D. The right ovary is visualized. The right ovary measures 4.2 x 2.5 x 2.3 cm. There is no right ovarian cyst or ovarian mass. There is no visualized right adnexal mass or complex lesion. There is normal arterial and normal venous vascularity. The left ovary is non-visualized. There is no fluid in the cul-de-sac. The visualized bladder is unremarkable. US/Pelvic (Non ) IMPRESSION: Heterogeneous thickened endometrium consistent with retained products of conception. Small uterine fibroids. Electronically Signed: Reji Matthews MD at 11:17 EDT , Service support ,
[2019-08-27] MEDS: Ondansetron 4 MG/2 ML Vial IV (09:11)
[2019-08-27] MEDS: 0.9% Normal Saline 1,000 ML 1000 ML IV (09:11)
[2019-08-27] MEDS: Ketorolac 30 MG/ML Syringe IV (09:11)
--- NOTE | 2019-08-27 09:14 | ED.VIS.GEN ---
History of Present Illness Chief Complaint: Vag Bleeding Informant: Patient Onset: Today Maximum Severity: Mild Narrative: The patient presents complaining of vaginal bleeding pelvic cramps that worsened this morning. She is delivered Cornelius went home yesterday G1, P1 no complications Coronavirus national emergency no exposures no fever no cough no shortness of breath She is been having pelvic cramps and vaginal bleeding since her state she reports increasing cramps and slightly more bleeding this morning and she came to the hospital no complications from delivery she reports no past history no other complaints Past Medical History - Allergies and Home Meds Allergies/Adverse Reactions: Allergies gluten Allergy (Verified 08/27/19 08:40) Other Primary Care Physician: Yee Hines MD [Primary Care Provider] - Past Medical History: None Smoking Status: Never smoker Review of Systems General: Denies: Chills, Fever, Sweats Eyes: Denies: Visual changes - bilaterally, Diplopia ENT: Denies: Rhinorrhea, Sore throat Cardiovascular: Denies: Chest pain, Palpitations Respiratory: Denies: Dyspnea, Cough, Dyspnea on exertion Gastrointestinal: Denies: Abdominal pain, Nausea, Vomiting, Diarrhea, Melena, Hematochezia Genitourinary: Reports: - - The complaint is pelvic cramps and bleeding. Denies: Dysuria, Hematuria, Frequency Musculoskeletal: Denies: Back pain, Extremity Pain Skin: Denies: Rash, Wounds Neurological: Denies: Headache, Weakness, Numbness Physical Exam Vital Signs/Narrative: Vital Signs Temp Pulse Resp BP Pulse Ox 08/27/19 08:38 97.4 F L 85 16 139/87 H 98 General: Well nourished, Well developed, No Acute Distress Head: Normocephalic, Atraumatic Eyes: Perrl, EOMI ENT: Moist mucous membranes, No rhinorrhea Neck: Supple, Nontender Cardiovascular: Regular rate, Regular rhythm, No murmurs Respiratory: No distress, CTA bilaterally, Chest nontender Abdomen: Soft, Nontender, Nondistended, Normal bowel sounds : - - Pelvic exam with nurse tour director shows scant bleeding from the cervix very mild pain to the right left suprapubic area on bimanual exam no obvious tears or lacerations and the vagina the bleeding is very minor no obvious signs of retained products the abdomen shows no rebound or guarding just pain over really the pelvic region Back: Nontender, Normal Inspection Extremities: Nontender, No edema Skin: Normal color, No rash Neurological: Alert, Oriented x3, Cranial nerves II-XII grossly intact, Normal Strength, Normal Sensation Psychological: Normal affect, Normal Mood Diagnostic/Tx/Re-eval - Medical Decision Making She has pain over the right lower suprapubic primarily and left lower abdomen no rebound or guarding this is the same pain she has had throughout her port status, given all the above screening labs IV fluids pain management ultrasound discussed with OB Patient screening labs are generally unremarkable her hemoglobin is 9.2 baseline around 11,, The ultrasound per radiology shows endometrium at 34 mm it is heterogeneous there is a concern about retained products of conception but nothing obvious, and as well the patient is known to have large fibroids. I spoke with her PHOTOGRAPHIC REPRODUCTION TECHNICIAN Dr. Samir Trejo discussed case in detail she is very familar with the patient as the patient can be discharged with outpatient follow-up we reviewed the ultrasound findings the patient is feeling better is comfortable discharge home she was started on Naprosyn [place] No. 6 tablets as rescue medicine and follow-up with the office Home stable Impression final 2 days spontaneous vaginal delivery, pelvic cramps with scant vaginal bleeding ED Disposition - Plan for ED Patient: Diagnosis: vaginal bleeding Instructions: ED FIBROIDS, ED Bleed Irregular Vaginal Prescriptions: Naproxen [Naprosyn] 500 mg PO BID PRN #20 tab Prescription Printed Hydrocodone Bitart/Apap 5-325 [[place] 5MG-325MG] 1 tab PO Q4H PRN PRN 2 Days #10 tab PRN Reason: Pain Prescription Printed Referrals: Yee Hines MD [Primary Care Provider] -
[2019-08-27 09:27] LABS: Absolute Lymphocyte Count 1.85 X10^3/uL (0.83-4.51); Absolute Neutrophil Count 6.5 X10^3/uL (2.0-7.7); Basophil# 0.03 X10^3/uL; Basophil% 0.3 % (0-1); Eosinophil# 0.16 X10^3/uL; Eosinophils% 1.7 % (0-5); Hematocrit 29.3 % (37-47); Hemoglobin 9.2 g/dL (12.0-15.0); Lymphocyte # 1.85 X10^3/ul (4.0); Lymphocyte % 20.1 % (19-41); Mean Corp Hgb Conc 31.4 g/dL (32-36); Mean Corpuscular Hgb 28.6 pg (27.0-32.0); Monocyte# 0.59 X10^3/uL; Monocyte% 6.4 % (0-10); NRBC Flagged by Analyzer 0 % (0-5); Neutrophil # 6.52 X10^3/uL (2.7-7.7); Neutrophil % 70.8 % (47-70); Platelet Count 166 K/mm3 (150-450); RBC Distribution Width CV 14.4 % (11.6-14.6); RBC Distribution Width SD 47.6 fl (35.1-43.9); Red Blood Count 3.22 M/mm3 (4.2-5.4); White Blood Count 9.2 K/mm3 (4.4-11.0)
[2019-08-27 09:41] LABS: Anion Gap 6 (5-15); BUN 12 mg/dL (7-18); BUN/Creat Ratio 18.5 RATIO (10-20); Calcium,Total 7.9 mg/dL (8.5-10.1); Chloride 105 mmol/L (98-107); Creatinine, Serum 0.65 mg/dL (0.55-1.02); EST Glomerular Filtration Rate 108 mL/min (>60); Est Glom Filt Rate - Afr Amer 131 mL/min (>60); Estimated Creatinine Clearance 108.78 ml/min; Glucose 96 mg/dL (74-106); Potassium 3.6 mmol/L (3.5-5.1); Sodium Level 138 mmol/L (136-145)
[2019-08-27 09:57] VITALS: BP 129/96; PULSE 79; RESP 17; O2SAT 99
--- NOTE | 2019-08-27 11:53 | ED.RN ---
IV DC'ED, CATHETER INTACT, SMALL GAUZE DRESSING PLACE. DISCHARGE INSTRUCTIONS GIVEN TO AND REVIEWED WITH PATIENT, PATIENT DENIES QUESTIONS OR CONCERNS AND VOICES UNDERSTANDING OF DISCHARGE INSTRUCTIONS. PT TO PRIVATE VEHICLE VIA WHEELCHAIR.
[2019-08-27 11:54] VITALS: BP 122/77; PULSE 75; RESP 16; O2SAT 99
== END 2019-08-27 11:54 | disposition home or self-care (01) ==
LOC: ED 09:25
PROVIDERS: Emergency Provider Emergency Medicine; PCP Family Medicine
DX: O72.2 Delayed and secondary postpartum hemorrhage (principal)
CPT/HCPCS: 76856; 80048; 85025; 96361; 96374; 96375; 99283; J7030; J2405

== ENCOUNTER → 2019-09-13 | Outpatient (CLI) | payer BC, SELFPAY ==
[2019-08-27 08:38] VITALS: BMI 30.8
--- NOTE | 2019-09-13 18:24 | US_ITS ---
STUDY: ABDOMINAL ULTRASOUND REASON FOR EXAM: Female, 39 years old. Right upper quadrant pain. . TECHNIQUE: Transabdominal ultrasound was performed with real-time and static salazar scale imaging. TECHNICAL QUALITY: Adequate. COMPARISON: MRI dated 08/16/2018. CT dated 08/08/2018. FINDINGS: Liver: The liver measures 16.2 cm. There is normal echogenicity of the liver. The bile ducts are within normal limits. There is hepatic color flow. The direction of portal flow is hepatopetal. There are 2 subcentimeter cysts noted in the liver, measuring up to 5 mm. Gallbladder: Normal distended gallbladder. The gallbladder wall measures 3 mm. There is a negative sonographic Mensah''s sign. There is no pericholecystic fluid. There are no gallstones. There are multiple polyps noted in the gallbladder with the largest measuring 5 mm. Common Bile Duct (C.B.D.): The common bile duct measures 3 mm. Pancreas: Normal size of the head, body and tail of the pancreas. There is normal echogenicity of the pancreas. There is a 1.8 x 1.5 cm cyst in the body of the pancreas which appears to have increased in size when compared with the prior MRI. Spleen: Normal size of the spleen. The spleen measures 9.4 cm. Right Kidney: Normal size of the right kidney. The right kidney measures 12.8 cm. Normal renal cortex. There is no demonstrated renal mass or cyst. There is mild hydronephrosis of the right kidney. Left Kidney: Normal size of the left kidney. The left kidney measures 12.5 cm. Normal renal cortex. There is no demonstrated renal mass or cyst. There is no left hydronephrosis. Aorta: The aorta is normal in caliber. I.V.C.: The IVC is patent. There is no ascites. US/Abdomen Complete IMPRESSION: Mild right hydronephrosis with no cause identified on this study. If indicated, further evaluation with CT can be performed. 1.8 x 1.5 cm cyst in the pancreas which appears to have increased in size when compared with the prior MRI. A follow-up MRI is recommended. No sonographic evidence of acute cholecystitis. Gallbladder polyps, measuring up to 5 mm. A follow-up ultrasound in 6-12 months is recommended. Electronically Signed: Robb Orourke, at 19:34 EDT Tel , Service support ,
[2019-09-13 19:12] LABS: Absolute Lymphocyte Count 2.75 X10^3/uL (0.83-4.51); Basophil# 0.05 X10^3/uL; Basophil% 0.7 % (0-1); Eosinophil# 0.21 X10^3/uL; Eosinophils% 2.8 % (0-5); Hematocrit 38.7 % (37-47); Hemoglobin 12.1 g/dL (12.0-15.0); Lymphocyte # 2.75 X10^3/ul (4.0); Lymphocyte % 36.3 % (19-41); Mean Corp Hgb Conc 31.3 g/dL (32-36); Mean Corpuscular Hgb 28.7 pg (27.0-32.0); Mean Corpuscular Volume 91.9 fL (81-99); Mean Platelet Vol. 10.8 fl (6.2-12.0); Monocyte# 0.52 X10^3/uL; Monocyte% 6.9 % (0-10); NRBC Flagged by Analyzer 0 % (0-5); Neutrophil # 4.02 X10^3/uL (2.7-7.7); Platelet Count 291 K/mm3 (150-450); RBC Distribution Width CV 15.1 % (11.6-14.6); RBC Distribution Width SD 50.4 fl (35.1-43.9); Red Blood Count 4.21 M/mm3 (4.2-5.4); White Blood Count 7.6 K/mm3 (4.4-11.0)
[2019-09-13 19:36] LABS: ALB/GLOB Ratio 0.9 RATIO (0.9-2.4); AST(SGOT) 30 U/L (15-37); Alanine Aminotransfer ALT/SGPT 49 U/L (13-56); Albumin, Serum 3.7 g/dL (3.2-5.0); Alkaline Phosphatase 104 U/L (45-117); Anion Gap 5 (5-15); BUN 10 mg/dL (7-18); Calcium,Total 8.7 mg/dL (8.5-10.1); Chloride 109 mmol/L (98-107); Creatinine, Serum 0.59 mg/dL (0.55-1.02); EST Glomerular Filtration Rate 121 mL/min (>60); Est Glom Filt Rate - Afr Amer 146 mL/min (>60); Globulin 4.2 g/dL (2.2-4.2); Glucose 90 mg/dL (74-106); Protein, Total 7.9 g/dL (6.4-8.2); Sodium Level 141 mmol/L (136-145)
[2019-09-13 20:12] LABS: hCG Titer Quant., Serum 1 mIU/mL (1-3)
== END | disposition home or self-care (01) ==
PROVIDERS: PCP Family Medicine; Visit Provider Obstetrics & Gynecology
DX: R10.11 Right upper quadrant pain (principal)
CPT/HCPCS: 36415; 76700; 80053; 84702; 85025

== ENCOUNTER → 2019-11-08 | Outpatient (CLI) | payer BC, SELFPAY ==
[2019-11-02 11:35] VITALS: BMI 30.8
--- NOTE | 2019-11-08 18:11 | US_ITS ---
STUDY: ULTRASOUND OF THE FEMALE PELVIS - COMPLETE REASON FOR EXAM: Female, 39 years old. Fibroids TECHNIQUE: Transabdominal and Transvaginal TECHNICAL QUALITY: Adequate. COMPARISON: 08/27/2019 FINDINGS: The uterus is anteverted and is in a midline position. The uterus measures 8.1 x 6.6 x 3.8 cm. Normal uterine cervix. The endometrium measures 5 mm in thickness, and is hyperechoic. There is no demonstrated endometrial mass. Again noted are multiple small fibroids in the uterus with the largest measuring 1.5 x 1.4 cm. The previously seen 3 cm fibroid is not identified on this exam. The right ovary is visualized. The right ovary measures 4.3 x 3.0 x 2.3 cm. There is no right ovarian cyst or ovarian mass. There is no visualized right adnexal mass or complex lesion. There is normal arterial and normal venous vascularity. The left ovary is visualized. The left ovary measures 3.9 x 2.4 x 1.9 cm. There is no left ovarian cyst or ovarian mass. There is no visualized left adnexal mass or complex lesion. There is normal arterial and normal venous vascularity. There is no fluid in the cul-de-sac. US/Pelvic (Non ) IMPRESSION: Multiple small fibroids in the uterus. The previously seen 3 cm fibroid is not visualized on this exam. Otherwise, unremarkable pelvic ultrasound. Electronically Signed: Robb Orourke, at 16:59 EDT Tel , Service support ,
--- NOTE | 2019-11-08 18:23 | US_ITS ---
STUDY: ULTRASOUND OF THE FEMALE PELVIS - COMPLETE REASON FOR EXAM: Female, 39 years old. Fibroids TECHNIQUE: Transabdominal and Transvaginal TECHNICAL QUALITY: Adequate. COMPARISON: 08/27/2019 FINDINGS: The uterus is anteverted and is in a midline position. The uterus measures 8.1 x 6.6 x 3.8 cm. Normal uterine cervix. The endometrium measures 5 mm in thickness, and is hyperechoic. There is no demonstrated endometrial mass. Again noted are multiple small fibroids in the uterus with the largest measuring 1.5 x 1.4 cm. The previously seen 3 cm fibroid is not identified on this exam. The right ovary is visualized. The right ovary measures 4.3 x 3.0 x 2.3 cm. There is no right ovarian cyst or ovarian mass. There is no visualized right adnexal mass or complex lesion. There is normal arterial and normal venous vascularity. The left ovary is visualized. The left ovary measures 3.9 x 2.4 x 1.9 cm. There is no left ovarian cyst or ovarian mass. There is no visualized left adnexal mass or complex lesion. There is normal arterial and normal venous vascularity. There is no fluid in the cul-de-sac. US/Transvaginal Non- IMPRESSION: Multiple small fibroids in the uterus. The previously seen 3 cm fibroid is not visualized on this exam. Otherwise, unremarkable pelvic ultrasound. Electronically Signed: Robb Orourke, at 16:59 EDT Tel , Service support ,
== END | disposition home or self-care (01) ==
LOC: US 18:08
PROVIDERS: PCP Family Medicine; Referring Provider Obstetrics & Gynecology; Visit Provider Obstetrics & Gynecology
DX: D25.9 Leiomyoma of uterus, unspecified (principal)
CPT/HCPCS: 76830; 76856

== ENCOUNTER → 2020-01-04 | Outpatient (CLI) | payer BC, SELFPAY ==
[2019-12-04 09:24] VITALS: BMI 30.8
--- NOTE | 2020-01-04 13:46 | CT_ITS ---
STUDY: CT ABDOMEN AND PELVIS WITH AND WITHOUT CONTRAST REASON FOR EXAM: Female, 39 years old. LOW ABD PAIN SINCE VAG. IN AUGUST RADIATION DOSAGE (If Supplied By Facility): CTDIvol = ( 15.22 ) mGy, DLP = ( 2467.24 ) mGycm TECHNIQUE: Transaxial images were obtained from the dome of the diaphragm to the symphysis pubis without oral contrast. IV 100mL [id number]-[id number] was administered. Sagittal and coronal images were reconstructed. Individualized dose optimization techniques were used for this CT. COMPARISON: 08/08/2018, MRI from 08/16/2018 FINDINGS: The visualized lung bases are unremarkable. The visualized portions of the heart are within normal limits. Normal liver. The gallbladder is contracted. Normal spleen. A previously described cystic lesion in the head of the pancreas has increased in size since the previous study. And measures 1.6 x 1.2 cm compared to 0.8 x 0.6 cm on the previous MRI. This again is concerning for neoplasm since it is increased in size. Normal bilateral adrenal glands. Normal right kidney. Normal left kidney. The stomach is abnormally distended and fluid-filled. Proximal small bowel loops are unremarkable. There are multiple nondistended fluid-filled small bowel loops in the ileum suggesting ileus. This may be due to retained stool throughout the colon which may be impacted. There is non-visualization of the appendix. Normal abdominal aorta. Normal inferior vena cava. Normal retroperitoneum. Normal urinary bladder. The uterus is again noted to be enlarged with multiple serpiginous vessels around its periphery suggesting pelvic congestion. No suspicious adnexal mass or free fluid Normal abdominal wall. Normal osseous structures. CT/CT Abd/Pelvis W/WO Contrast IMPRESSION: Retained stool throughout the colon which may be impacted. This is likely causing ileus of the ileum and may be responsible also for a dilated fluid-filled stomach. Previously described cystic mass in the head of pancreas is increased in size since a previous MRI of 2018. It now measures 1.6 x 1.2 cm, approximately doubling in size and is concerning again for a neoplastic process Multiple dilated serpiginous vessels around the periphery of the uterus suggests pelvic congestion Electronically Signed: Rene Vaughn MD at 15:21 EDT , Service support ,
== END | disposition home or self-care (01) ==
LOC: CT 13:45
PROVIDERS: PCP Family Medicine; Referring Provider Urology; Visit Provider Urology
DX: N13.2 Hydronephrosis with renal and ureteral calculous obstruction (principal); R10.9 Unspecified abdominal pain
CPT/HCPCS: 74178; Q9967

== ENCOUNTER → 2020-02-05 | Outpatient (CLI) | payer BC, SELFPAY ==
[2019-12-04 09:24] VITALS: BMI 30.8
--- NOTE | 2020-02-05 15:02 | RAD_ITS ---
STUDY: X-RAY - LUMBAR SPINE REASON FOR EXAM: Female, 39 years old. Lower back pain x years, pt states lower back pain worsened after fall 2 years ago, abdominal pain x 5 months after giving , constant lower back pain gets worse with movement TECHNIQUE: 3 view(s) of the lumbar spine were obtained. COMPARISON: Comparison is made with prior examination dated 03/31/2018. FINDINGS: Normal lumbar lordosis. There is no substantial scoliosis. There is a normal alignment of the vertebrae. Normal vertebral bodies and endplates. Marked degree of disc space narrowing and disc degeneration at the L5-S1 level. Degenerative changes of the sacroiliac joints bilaterally. RAD/Lumbar Spine 2 or 3 Views IMPRESSION: Disc space narrowing and disc degeneration at the L5-S1 level. Degenerative changes of the sacroiliac joints bilaterally. Electronically Signed: Stewart Tovar, at 15:43 EDT , Service support ,
== END | disposition home or self-care (01) ==
LOC: RAD 14:59
PROVIDERS: PCP Family Medicine; Referring Provider Anesthesiology Pain Medicine; Visit Provider Anesthesiology Pain Medicine
DX: M54.5 Low back pain (principal)
CPT/HCPCS: 72100

== ENCOUNTER → 2020-02-13 | Outpatient (CLI) | payer BC, SELFPAY ==
[2019-12-04 09:24] VITALS: BMI 30.8
--- NOTE | 2020-02-13 17:42 | MRI_ITS ---
STUDY: MRI LUMBAR SPINE WITHOUT CONTRAST REASON FOR EXAM: Female, 39 years old. LBP, right leg pain, abd. pain TECHNIQUE: Standardized fat and water weighted pulse sequences were obtained in the sagittal and axial planes. COMPARISON: Lumbar spine 02/05/2020 FINDINGS: T12-L1: Normal endplates. Normal disc height, hydration and morphology. Normal bilateral facet joints. Normal central canal and bilateral lateral recesses. Normal bilateral intervertebral neural foramina. Normal lumbar lordosis. There is no substantial scoliosis. Normal conus medullaris that terminates at L1 L1-2: Normal endplates. Normal disc height, hydration and morphology. Normal bilateral facet joints. Normal central canal and bilateral lateral recesses. Normal bilateral intervertebral neural foramina. L2-3: Normal endplates. Normal disc height, hydration and morphology. Normal bilateral facet joints. Normal central canal and bilateral lateral recesses. Normal bilateral intervertebral neural foramina. L3-4: Normal endplates. Normal disc height, hydration and morphology. Normal bilateral facet joints. Normal central canal and bilateral lateral recesses. Normal bilateral intervertebral neural foramina. L4-5: Normal endplates. Normal disc height, hydration and morphology. Normal bilateral facet joints. Normal central canal and bilateral lateral recesses. Normal bilateral intervertebral neural foramina. L5-S1: Degenerative endplate changes.. Normal disc height, desiccation and minor annular bulge.. Bilateral facet arthropathy.. Normal central canal and bilateral lateral recesses. Minor bilateral neural foraminal encroachment.. Normal visualized sacral ala. Normal visualized paraspinous soft tissue structures. MRI/Spine Lumbar (Routine) IMPRESSION: No acute fracture or other significant bony pathology.. Mild spinal stenosis at L5-S1 secondary to minor annular bulge and facet arthropathy Electronically Signed: Isaiah Real MD at 21:22 EDT , Service support ,
== END | disposition home or self-care (01) ==
LOC: MRI 17:38
PROVIDERS: PCP Family Medicine; Referring Provider Anesthesiology Pain Medicine; Visit Provider Anesthesiology Pain Medicine
DX: M54.9 Dorsalgia, unspecified (principal); M79.606 Pain in leg, unspecified
CPT/HCPCS: 72148